=== PATIENT | female | born 1965 | race Caucasian/White ===

== ENCOUNTER 2016-02-25 10:15 | Outpatient (CLI) | payer OTHER | END 2016-02-25 10:16 | disposition home or self-care (01) | DX: Z00.00 Encounter for general adult medical examination without abnormal findings (principal); R31.9 Hematuria, unspecified ==

== ENCOUNTER 2017-03-10 08:00 | Outpatient (CLI) | payer BC, OTHER ==
[2017-03-10 12:29] LABS: BASOPHILS # (AUTO) 0.1 10^3/uL (0.0-0.1); BASOPHILS % (AUTO) 0.7 %; EOSINOPHILS # (AUTO) 0.1 10^3/uL (0.0-0.7); EOSINOPHILS % (AUTO) 1.3 %; HGB - HEMOGLOBIN 13.4 g/dL (12.0-16.0); LYMPHOCYTES # (AUTO) 2.2 10^3/uL (1.5-3.5); LYMPHOCYTES % (AUTO) 32.2 %; MEAN CORPUSCULAR HEMOGLOBIN 29.2 pg (27.0-31.0); MEAN CORPUSCULAR HGB CONC 33.7 g/dL (32.0-36.0); MEAN CORPUSCULAR VOLUME 86.8 fL (81.0-99.0); MEAN PLATELET VOLUME 8.6 fL (7.9-10.8); MONOCYTES # (AUTO) 0.5 10^3/uL (0.0-1.0); MONOCYTES % (AUTO) 6.9 %; NEUTROPHILS # (AUTO) 4.1 10^3/uL (1.5-6.6); NEUTROPHILS % (AUTO) 58.9 %; PLT - PLATELET COUNT 328 10^3/uL (130-450); RED BLOOD COUNT 4.59 10^6/uL (4.20-5.40); RED CELL DISTRIBUTION WIDTH 13.7 % (12.0-15.0)
[2017-03-10 12:43] LABS: ALBUMIN/GLOBULIN RATIO 1.1 (1.0-2.2); ALKALINE PHOSPHATASE 40 IU/L (42-121); ALT ALANINE AMINOTRANSFERASE 26 IU/L (10-60); AST ASPARTATE AMINOTRANSFERASE 20 IU/L (10-42); BILIRUBIN,TOTAL 1.1 mg/dL (0.2-1.0); BUN - BLOOD UREA NITROGEN 13 mg/dL (6-20); CALCIUM 9.2 mg/dL (8.5-10.3); CARBON DIOXIDE - CO2 29 mmol/L (21-32); CHLORIDE 101 mmol/L (101-111); CHOL/HDL RATIO 4.5 (<4.4); CHOLESTEROL 161 mg/dL; CREATININE 0.7 mg/dL (0.4-1.0); GFR - MDRD 89 (>89); GLUCOSE 102 mg/dL (70-100); HDL CHOLESTEROL 36 mg/dL; LDL CHOLESTEROL,CALCULATED 107 mg/dL; SODIUM 139 mmol/L (135-145); TOTAL PROTEIN 7.5 g/dL (6.7-8.2); VLDL CHOLESTEROL 18 mg/dL
== END 2017-03-10 08:01 | disposition home or self-care (01) ==
LOC: LAB.WCP 08:00
PROVIDERS: ATTEND Physician Assistant Medical
DX: Z00.00 Encounter for general adult medical examination without abnormal findings (principal)
CPT/HCPCS: 36415; 80053; 80061; 83721; 84443; 85025

== ENCOUNTER 2017-07-07 13:02 | Outpatient (CLI) | payer BC ==
--- NOTE | 2017-07-08 17:35 | Mammography Report ---
DIGITAL SCREENING MAMMOGRAM: 07/07/2017 CLINICAL INDICATION: A 52-year-old with history of benign right breast biopsy for screening. COMPARISON: 06/2013, 10/2012, 09/2011, 08/2010, 07/2008. TECHNIQUE: Routine CC and MLO projections were obtained of the breasts. FINDINGS: The breasts again demonstrate scattered fibroglandular densities bilaterally. No suspicious masses, clustered microcalcifications, or regions of architectural distortion are identified. A few punctate, typically benign calcifications are present. IMPRESSION: BENIGN FINDINGS. RECOMMENDATION: Routine annual screening unless otherwise clinically indicated. BIRADS category 2 benign findings. STANDARD QUALIFYING STATEMENTS 1. This examination was reviewed with the aid of Computed-Aided Detection (CAD). 2. A negative or benign imaging report should not delay biopsy if clinically suspicious findings are present. Consider surgical consultation if warranted. More than 5% of cancers are not identified by imaging. 3. Dense breasts may obscure an underlying neoplasm. TD: 07/08/2017 12:51
== END 2017-07-07 13:03 | disposition home or self-care (01) ==
LOC: DI 13:02
PROVIDERS: ATTEND Physician Assistant Medical
DX: Z12.31 Encounter for screening mammogram for malignant neoplasm of breast (principal)
CPT/HCPCS: 77067

== ENCOUNTER 2017-07-19 08:00 | Outpatient (CLI) | payer BC | END 2017-07-19 08:01 | disposition home or self-care (01) | LOC: LAB.WCP 08:00 | PROVIDERS: ATTEND Physician Assistant Medical | DX: L65.9 Nonscarring hair loss, unspecified (principal) | CPT/HCPCS: 36415; 84443 ==

== ENCOUNTER 2017-08-19 09:45 | Outpatient (CLI) | payer BC ==
[2017-08-19 13:04] LABS: THYROID STIMULATING HORMONE 1.8 uIU/mL (0.34-5.60)
[2017-08-19 13:06] LABS: FREE T4 (FREE THYROXINE) 1.16 ng/dL (0.58-1.64)
== END 2017-08-19 09:46 | disposition home or self-care (01) ==
LOC: LAB.WCP 09:45
PROVIDERS: ATTEND Physician Assistant Medical
DX: E03.9 Hypothyroidism, unspecified (principal)
CPT/HCPCS: 36415; 84439; 84443

== ENCOUNTER 2018-01-17 08:00 | Outpatient (CLI) | payer BC | END 2018-01-17 23:59 | LOC: LAB.R 08:00 | PROVIDERS: ATTEND Physician Assistant Medical | DX: M54.5 Low back pain (principal) | CPT/HCPCS: 87086 ==

== ENCOUNTER 2018-01-24 08:00 | Outpatient (CLI) | payer BC | END 2018-01-24 23:59 | disposition home or self-care (01) | LOC: LAB.WCP 08:00 | PROVIDERS: ATTEND Physician Assistant Medical | DX: E03.9 Hypothyroidism, unspecified (principal) | CPT/HCPCS: 36415; 84443 ==

== ENCOUNTER 2018-05-11 08:00 | Outpatient (CLI) | payer BC ==
[2018-05-11 14:13] LABS: ALBUMIN 4.2 g/dL (3.2-5.5); ALBUMIN/GLOBULIN RATIO 1.1 (1.0-2.2); ALKALINE PHOSPHATASE 38 IU/L (42-121); ALT ALANINE AMINOTRANSFERASE 29 IU/L (10-60); AST ASPARTATE AMINOTRANSFERASE 24 IU/L (10-42); BILIRUBIN,TOTAL 1.5 mg/dL (0.2-1.0); BUN - BLOOD UREA NITROGEN 14 mg/dL (6-20); CALCIUM 9.6 mg/dL (8.5-10.3); CARBON DIOXIDE - CO2 28 mmol/L (21-32); CHLORIDE 95 mmol/L (101-111); CHOL/HDL RATIO 4.5 (<4.4); CHOLESTEROL 208 mg/dL; CREATININE 0.6 mg/dL (0.4-1.0); GFR - MDRD 105 (>89); GLUCOSE 97 mg/dL (70-100); HDL CHOLESTEROL 46 mg/dL; LDL CHOLESTEROL,CALCULATED 141 mg/dL; LDL/HDL RATIO 3.1 (<4.4); SODIUM 135 mmol/L (135-145); TOTAL PROTEIN 7.9 g/dL (6.7-8.2); VLDL CHOLESTEROL 21 mg/dL
[2018-05-11 14:14] LABS: BASOPHILS # (AUTO) 0.1 10^3/uL (0.0-0.1); BASOPHILS % (AUTO) 1.3 %; EOSINOPHILS # (AUTO) 0.1 10^3/uL (0.0-0.7); EOSINOPHILS % (AUTO) 1.4 %; HGB - HEMOGLOBIN 14.2 g/dL (12.0-16.0); LYMPHOCYTES # (AUTO) 2.8 10^3/uL (1.5-3.5); LYMPHOCYTES % (AUTO) 35.9 %; MEAN CORPUSCULAR HEMOGLOBIN 29.3 pg (27.0-31.0); MEAN CORPUSCULAR HGB CONC 33.9 g/dL (32.0-36.0); MEAN CORPUSCULAR VOLUME 86.5 fL (81.0-99.0); MEAN PLATELET VOLUME 8.4 fL (7.9-10.8); MONOCYTES # (AUTO) 0.6 10^3/uL (0.0-1.0); MONOCYTES % (AUTO) 7.9 %; NEUTROPHILS # (AUTO) 4.2 10^3/uL (1.5-6.6); NEUTROPHILS % (AUTO) 53.5 %; PLT - PLATELET COUNT 386 10^3/uL (130-450); RED BLOOD COUNT 4.86 10^6/uL (4.20-5.40); RED CELL DISTRIBUTION WIDTH 13.2 % (12.0-15.0); WHITE BLOOD COUNT 7.8 x10^3/uL (4.8-10.8)
== END 2018-05-11 08:01 | disposition home or self-care (01) ==
LOC: LAB.WCP 08:00
PROVIDERS: ATTEND Physician Assistant Medical
DX: Z00.00 Encounter for general adult medical examination without abnormal findings (principal); E78.2 Mixed hyperlipidemia; Z79.899 Other long term (current) drug therapy; I10 Essential (primary) hypertension; E03.9 Hypothyroidism, unspecified
CPT/HCPCS: 36415; 80053; 80061; 83721; 84443; 85025

== ENCOUNTER 2018-06-14 10:15 | Emergency (ER) | payer BC ==
[2018-06-14 10:24] VITALS: BP 134/97
--- NOTE | 2018-06-14 11:56 | Ultrasound Report ---
Reason: swelling viens bludging Procedure Date: 06/14/2018 Accession Number: [id number] / [id number] Procedure: US - Duplex Ext Veins Left CPT Code: FULL RESULT: EXAM: LEFT LOWER EXTREMITY VENOUS ULTRASOUND EXAM DATE: 06/14/2018 10:38 AM. CLINICAL HISTORY: Bruising, swelling and bulging veins in the proximal left lower extremity. COMPARISON: None. TECHNIQUE: Real-time sonographic vascular imaging was performed by the go cart mechanic through the lower extremity utilizing both color-flow and Doppler spectral analysis. Multiple resources representative static images were saved for review. FINDINGS: Common Femoral Vein (CFV): Normal. CFV-GSV Junction: Normal. Profunda Femoral Vein (PFV): Normal. Femoral Vein (FV) Prox: Normal. Femoral Vein (FV) Mid: Normal. Femoral Vein (FV) Dist: Normal. Popliteal Vein: Normal. Posterior Tibial Veins: Normal. Peroneal Veins: Normal. Contralateral Side CFV: Normal. Other: In the region of bruising in the proximal left lower extremity there is ill-defined regions of echogenicity within the subcutaneous fat with no internal vascularity. IMPRESSION: 1. No evidence for deep venous thrombosis in the left lower extremity. 2. Fat contusion in the area of bruising in the left lower extremity. RADIA
--- NOTE | 2018-06-14 11:58 | ED Physician Documentation ---
PD HPI LOWER EXT INJURY - Stated complaint Stated Complaint: LFT LEG PX - Chief complaint Chief Complaint: Ext Problem - History obtained from History obtained from: Patient - History of Present Illness PD HPI LOW EXT INJURY LOCATION: Left, Lower leg Type of injury: Other (unknown) Timing - onset: How many days ago (3) Timing - duration: Days (3) Timing - details: Abrupt onset, Still present Improved by: Rest Worsened by: Moving, Palpating Associated symptoms: Swelling, Discolored Contributing factors: No: Anticoagulated Similar symptoms before: Has not had sx before Recently seen: Not recently seen - Additional information Additional information: 53-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 She did not recall any kind of an injury to the area and she became concerned about this.She is specifically concerned about a blood clot. Review of Systems Constitutional: denies: Fever Eyes: denies: Decreased vision Ears: denies: Ear pain Nose: denies: Congestion Throat: denies: Sore throat Cardiac: denies: Chest pain / pressure Respiratory: denies: Cough GI: denies: Vomiting Skin: denies: Rash, Laceration (s), Bite / sting Musculoskeletal: reports: Extremity pain, Extremity swelling. denies: Neck pain, Back pain Neurologic: denies: Generalized weakness, Focal weakness, Numbness PD PAST MEDICAL HISTORY - Past Medical History Cardiovascular: Hypertension Respiratory: None Endocrine/Autoimmune: None GI: None : None HEENT: None Psych: None Musculoskeletal: None Derm: None - Past Surgical History Past Surgical History: Yes General: Cholecystectomy - Present Medications Home Medications: Ambulatory Orders Medication Instructions Recorded Confirmed Lisinopril [Zestril] 20 mg PO DAILY 11/19/12 06/14/18 hydroCHLOROthiazide [Hydrodiuril] 25 mg PO DAILY 11/19/12 06/14/18 Levothyroxine [Synthroid] 75 mcg PO QDAC 06/14/18 06/14/18 - Allergies Allergies/Adverse Reactions: Allergies Allergy/AdvReac Type Severity Reaction Status Date / Time sulfamethoxazole AdvReac Rash Verified 06/14/18 10:24 [From Bactrim] trimethoprim [From Bactrim] AdvReac Rash Verified 06/14/18 10:24 - Social History Does the pt smoke?: No Smoking Status: Never smoker Does the pt drink ETOH?: Yes Does the pt have substance abuse?: No - POLST Patient has POLST: No PD ED PE NORMAL - Vitals Vital signs reviewed: Yes (hypertensive ) - General General: Alert and oriented X 3, No acute distress, Well developed/nourished - HEENT HEENT: Atraumatic, PERRL, EOMI - Neck Neck: Supple, no meningeal sign - Respiratory Respiratory: No respiratory distress - Derm Derm: Normal color, Warm and dry, No rash - Extremities Extremities: No deformity, Other (There is an area on the left calf medially that is ecchymotic without significant tenderness and there are varicos veins above this that appear mildly engorged. There is an are below this that is soft tissue swelling without ecchymosis. 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 No evidence for deep venous thrombosis in the left lower extremity 2. fat contusion in the area of bruising in the left lower extremity.), EMP read indepedently, See rad report PD MEDICAL DECISION MAKING - ED course Complexity details: reviewed results, re-evaluated patient, considered martineze heron, d/w patient ED course: 53-year-old female with what appears to be a bruise to the medial calf on the left side does not have DVT on ultrasound examination of the lower extremity. Departure - Departure Disposition: 01 Home, Self Care Clinical Impression: Traumatic ecchymosis of left lower leg Qualifiers: Encounter type: initial encounter Qualified Code(s): S80.12XA - Contusion of left lower leg, initial encounter Instructions: ED Contusion Soft Tissue Follow-Up: Esther Denney PA-C [Primary Care Provider] -
== END 2018-06-14 12:17 | disposition home or self-care (01) ==
LOC: ED 10:15
DX: S80.12XA Contusion of left lower leg, initial encounter (principal); I10 Essential (primary) hypertension
CPT/HCPCS: 99282; 99283

== ENCOUNTER 2018-07-03 09:30 | Outpatient (CLI) | payer BC | END 2018-07-03 23:59 | disposition home or self-care (01) | LOC: LAB.WCP 09:30 | PROVIDERS: ATTEND Physician Assistant Medical | DX: R30.0 Dysuria (principal); L01.00 Impetigo, unspecified | CPT/HCPCS: 87070; 87086; 87205 ==

== ENCOUNTER 2019-01-27 16:29 | Outpatient (CLI) | payer BC ==
--- NOTE | 2019-01-27 17:57 | MRI Report ---
Reason: LOW BACK PAIN Procedure Date: 01/27/2019 Accession Number: [id number] / [id number] Procedure: MRI - Lumbar Spine W/O CPT Code: Final Report FULL RESULT: EXAM: MRI LUMBAR SPINE WITHOUT CONTRAST EXAM DATE: 01/27/2019 05:14 PM. CLINICAL HISTORY: 53-year-old female, anterior left leg pain. LOW BACK PAIN. COMPARISON: Radiograph lumbar spine 09/21/2016 TECHNIQUE: Multiplanar, multisequence T1-weighted and fluid-sensitive sequences of the lumbar spine from T12 to S1 without contrast. Other: None. FINDINGS: Spinal Canal: The conus terminates at L1-L2. The conus medullaris appears unremarkable. There is suggestion of clumping of cauda equina nerve roots (for example series 601 image 21). Alignment: No scoliosis or spondylolisthesis. Bone Marrow: Five [id number] lumbar vertebral bodies are assumed. No gross fractures. T1 and T2 hyperintense lesions within L2 vertebral body are favored to represent benign hemangioma. No bone marrow replacement. Disk Levels/Facets: T12-L1: Mild diffuse disk bulge. No significant central canal or foraminal narrowing. L1-L2: Unremarkable. L2-L3: Mild diffuse disk bulge with superimposed left foraminal protrusion. Mild bilateral facet arthropathy. Mild central canal narrowing. Moderate left foraminal narrowing. No right foraminal narrowing. L3-L4: Mild bilateral facet arthropathy. Mild diffuse disk bulge. No significant central canal narrowing. Mild bilateral foraminal narrowing. L4-L5: Moderate diffuse disk bulge. Moderate bilateral facet arthropathy. Mild central canal narrowing. Moderate to severe right and moderate left foraminal narrowing. L5-S1: Mild diffuse disk bulge. Mild bilateral facet arthropathy. No significant central canal narrowing. Moderate right and mild left foraminal narrowing. Musculature: Normal. No edema or fatty atrophy. Other: The partially visualized retroperitoneum is unremarkable. IMPRESSION: 1. No evidence of acute fracture or traumatic subluxation. No bone marrow edema. No cord signal abnormality. 2. There is suggestion of clumping of cauda equina nerve roots (for example series 601 image 21). This suggests possibility of adhesive arachnoiditis, which may represent etiology for the patient's symptoms. Consider follow-up contrast enhanced lumbar MRI study to complete the assessment. 3. Mild to moderate multilevel degenerative spondylosis, as detailed above and summarized below. 4. L2-L3: Mild central canal narrowing. Moderate left foraminal narrowing. No right foraminal narrowing. Recommend correlation for left L2 radicular symptoms. 5. L3-L4: No significant central canal narrowing. Mild bilateral foraminal narrowing. 6. L4-L5: Mild central canal narrowing. Moderate to severe right and moderate left foraminal narrowing. Recommend correlation for right greater than left L4 radicular symptoms. 7. L5-S1: No significant central canal narrowing. Moderate right and mild left foraminal narrowing. Recommend correlation for right L5 radicular symptoms. Comment: The following findings are so common in adults without low back pain that while we report their presence, they must be interpreted with caution and in the context of the clinical situation. (Reference Francoisk et al, Spine 2001) Prevalence of findings in patients without low back pain: Disk degeneration (any evidence): 92% Disk desiccation/T2 signal loss: 83% Disk height loss: 56% Disk bulge: 64% Disk protrusion: 32% Annular tear/high intensity zone: 38% RADIA
== END 2019-01-27 16:30 | disposition home or self-care (01) ==
LOC: DI 16:29
PROVIDERS: ATTEND Physician Assistant Medical
DX: M47.816 Spondylosis without myelopathy or radiculopathy, lumbar region (principal); M48.061 Spinal stenosis, lumbar region without neurogenic claudication
CPT/HCPCS: 72148

== ENCOUNTER 2019-02-24 11:31 | Outpatient (CLI) | payer OTHER ==
[2019-02-24 12:03] LABS: CALCIUM 9.7 mg/dL (8.5-10.3); CREATININE 0.7 mg/dL (0.4-1.0)
== END 2019-02-24 11:32 | disposition home or self-care (01) ==
LOC: DI 11:31
PROVIDERS: ATTEND Physician Assistant Medical
DX: G83.4 Cauda equina syndrome (principal)
CPT/HCPCS: 36415; 80048

== ENCOUNTER 2019-03-06 17:18 | Outpatient (CLI) | payer OTHER | END 2019-03-06 17:19 | disposition home or self-care (01) | LOC: DI 17:18 | PROVIDERS: ATTEND Physician Assistant Medical | DX: Z53.9 Procedure and treatment not carried out, unspecified reason (principal) ==

== ENCOUNTER 2019-03-10 08:18 | Outpatient (CLI) | payer OTHER ==
[2019-03-10] MEDS ORDERED: GADOBUTROL 10 MMOL/10 ML VIAL ONE (08:24)
[2019-03-10] MEDS ORDERED: GADOBUTROL 10 MMOL/10 ML VIAL IVP ONE (09:02)
--- NOTE | 2019-03-10 15:49 | MRI Report ---
Reason: CAUDA EQUINA SYNDROME Procedure Date: 03/10/2019 Accession Number: [id number] / [id number] Procedure: MRI - Lumbar Spine W/ CPT Code: Final Report FULL RESULT: EXAM: MRI LUMBAR SPINE WITH CONTRAST EXAM DATE: 03/10/2019 08:52 AM. CLINICAL HISTORY: 54-year-old female. CAUDA EQUINA SYNDROME. COMPARISONS: MR lumbar spine 01/27/2019 TECHNIQUE: Limited, postcontrast only axial and sagittal images of the lumbar spine from T12 to S1 , following administration of intravenous contrast. Other: None. IV contrast: 10 ML Gadavist. FINDINGS: Neurologic Structures: The conus terminates at L1. No abnormal enhancement of the conus or the cauda equina. Alignment: No scoliosis or spondylolisthesis. Bone Marrow: Five ieq-krm-mczwtla lumbar vertebral bodies are assumed. No gross fractures or bone lesions. No abnormal enhancement. Stable mild multilevel degenerative spondylosis, better assessed on the prior complete MRI lumbar spine. Spinal Canal: No enhancing masses within the spinal canal. No epidural abscess. Musculature: No abnormal enhancement Other: The visualized retroperitoneum is unremarkable. IMPRESSION: 1. Limited postcontrast only MRI of the lumbar spine to accompany the MRI lumbar spine performed on 01/27/2019. No abnormal enhancement of the cord, the cauda equina, central canal, or the visualized vertebral column. 2. Stable mild multilevel degenerative spondylosis, better assessed on the prior complete MRI lumbar spine. Comment: The following findings are so common in adults without low back pain that while we report their presence, they must be interpreted with caution and in the context of the clinical situation. (Reference Zhouvik et al, Spine 2001) Prevalence of findings in patients without low back pain: Disk degeneration (any evidence): 92% Disk desiccation/T2 signal loss: 83% Disk height loss: 56% Disk bulge: 64% Disk protrusion: 32% Annular tear/high intensity zone: 38% RADIA
== END 2019-03-10 08:19 | disposition home or self-care (01) ==
LOC: DI 08:18
PROVIDERS: ATTEND Physician Assistant Medical
DX: G83.4 Cauda equina syndrome (principal); M47.816 Spondylosis without myelopathy or radiculopathy, lumbar region
CPT/HCPCS: 72149; A9585

== ENCOUNTER 2019-09-05 09:23 | Outpatient (CLI) | payer OTHER ==
[2019-09-05 11:46] LABS: BASOPHILS # (AUTO) 0.1 10^3/uL (0.0-0.1); BASOPHILS % (AUTO) 1.1 %; EOSINOPHILS # (AUTO) 0.1 10^3/uL (0.0-0.7); EOSINOPHILS % (AUTO) 1.4 %; HGB - HEMOGLOBIN 14.3 g/dL (12.0-16.0); LYMPHOCYTES # (AUTO) 2.5 10^3/uL (1.5-3.5); LYMPHOCYTES % (AUTO) 35.6 %; MEAN CORPUSCULAR HEMOGLOBIN 28.7 pg (27.0-31.0); MEAN CORPUSCULAR HGB CONC 32.1 g/dL (32.0-36.0); MEAN CORPUSCULAR VOLUME 89.2 fL (81.0-99.0); MONOCYTES # (AUTO) 0.5 10^3/uL (0.0-1.0); MONOCYTES % (AUTO) 6.7 %; NEUTROPHILS # (AUTO) 3.9 10^3/uL (1.5-6.6); NEUTROPHILS % (AUTO) 55.1 %; PLT - PLATELET COUNT 361 10^3/uL (130-450); RED BLOOD COUNT 4.99 10^6/uL (4.20-5.40); RED CELL DISTRIBUTION WIDTH 13.1 % (12.0-15.0); WHITE BLOOD COUNT 7.1 x10^3/uL (4.8-10.8)
[2019-09-05 12:19] LABS: ALBUMIN 4.5 g/dL (3.2-5.5); ALBUMIN/GLOBULIN RATIO 1.2 (1.0-2.2); ALKALINE PHOSPHATASE 37 IU/L (42-121); ALT ALANINE AMINOTRANSFERASE 29 IU/L (10-60); AST ASPARTATE AMINOTRANSFERASE 21 IU/L (10-42); BILIRUBIN,TOTAL 1.1 mg/dL (0.2-1.0); BUN - BLOOD UREA NITROGEN 15 mg/dL (6-20); CALCIUM 9.8 mg/dL (8.5-10.3); CARBON DIOXIDE - CO2 28 mmol/L (21-32); CHLORIDE 98 mmol/L (101-111); CHOLESTEROL 232 mg/dL; CREATININE 0.6 mg/dL (0.4-1.0); GLUCOSE 104 mg/dL (70-100); HDL CHOLESTEROL 46 mg/dL; LDL CHOLESTEROL,CALCULATED 163 mg/dL; LDL/HDL RATIO 3.5 (<4.4); SODIUM 136 mmol/L (135-145); TOTAL PROTEIN 8.2 g/dL (6.7-8.2); VLDL CHOLESTEROL 23 mg/dL
== END 2019-09-05 23:59 | disposition home or self-care (01) ==
LOC: LAB.WCP 09:23
PROVIDERS: ATTEND Physician Assistant Medical
DX: E03.9 Hypothyroidism, unspecified (principal); E78.2 Mixed hyperlipidemia; I10 Essential (primary) hypertension
CPT/HCPCS: 36415; 80053; 80061; 83721; 84443; 85025

== ENCOUNTER 2019-10-08 11:08 | Outpatient (CLI) | payer OTHER ==
--- NOTE | 2019-10-09 09:26 | Mammography Report ---
BILATERAL DIGITAL SCREENING MAMMOGRAM 3D/2D: 10/08/2019 CLINICAL: Routine screening. Comparison is made to exams dated: 07/07/2017 mammogram and 11/13/2012 mammogram - [facility]. There are scattered fibroglandular elements in both breasts. There is a 0.9 cm oval equal density focal asymmetry in the left breast central to the nipple in the retroareolar region. This is more prominent and increased in size. No other significant masses, calcifications, or other findings are seen in either breast. IMPRESSION: INCOMPLETE: NEEDS ADDITIONAL IMAGING EVALUATION The 0.9 cm oval equal density focal asymmetry in the left breast is indeterminate. Additional views with possible ultrasound are recommended. This exam was interpreted at Station ID: [id number]. NOTE: For mammograms, a report in lay terms will be sent to the patient. Approximately 15% of breast malignancies will not be visualized mammographically. In the management of a palpable breast mass, a negative mammogram must not discourage biopsy of a clinically suspicious lesion. Electronically Signed By: Zion Hager M.D. aty/:10/09/2019 08:01:08 ACR BI-RADS Category 0: Incomplete 3340F PARENCHYMAL PATTERN: (A) - The breast(s) demonstrate(s) scattered fibroglandular densities. BI-RADS CATEGORY: (0) - 0 Mammo and [place] [id number] Immediate follow-up LATERALITY: (L)
== END 2019-10-08 11:09 | disposition home or self-care (01) ==
LOC: DI.N 11:08
DX: Z12.31 Encounter for screening mammogram for malignant neoplasm of breast (principal); R92.8 Other abnormal and inconclusive findings on diagnostic imaging of breast
CPT/HCPCS: 77063; 77067

== ENCOUNTER 2019-10-30 10:30 | Outpatient (CLI) | payer OTHER ==
--- NOTE | 2019-10-31 10:20 | Ultrasound Report ---
LIMITED ULTRASOUND OF LEFT BREAST AND AXILLA: 10/30/2019 CLINICAL: Patient returns for additional imaging over a suspected mass in the left breast. Comparison is made to exams dated: 10/30/2019 mammogram, 10/08/2019 mammogram, 07/07/2017 mammogram, an d 11/13/2012 mammogram - [facility]. Color flow and real-time ultrasound of the left breast axilla were performed. Hinds scale images of t he real-time examination were reviewed. There is a 0.9 cm x 0.9 cm x 0.4 cm oval mass with a circumscribed margin in the left breast at 4 o'c lock in the retroareolar region 1 cm from the nipple. This oval mass is hypoechoic with a well-defin ed boundary and posterior acoustic shadowing. This correlates with mammography findings. Color flow imaging demonstrates that there is no vascularity present. No significant abnormalities were seen sonographically in the left axilla. IMPRESSION: SUSPICIOUS OF MALIGNANCY The 0.9 cm oval mass in the left breast is at a low suspicion for malignancy. An ultrasound guided biopsy is recommended. Exam findings were reviewed with the patient by Dr. Carol Leroy. This exam was interpreted at Station ID: [id number]. Electronically Signed By: Blake Morrison M.D. slc/:10/30/2019 12:15:42 Ultrasound BI-RADS: 4a Low suspicion for malignancy BI-RADS CATEGORY: (4a) - Low Susp None [id number] Immediate follow-up LATERALITY: ()
--- NOTE | 2019-10-31 10:20 | Mammography Report ---
UNILATERAL LEFT DIGITAL DIAGNOSTIC MAMMOGRAM 3D/2D: 10/30/2019 CLINICAL: Patient returns today to evaluate a focal asymmetry in the left breast. Comparison is made to exams dated: 10/08/2019 mammogram, 07/07/2017 mammogram, 07/11/2013 mammogram, an d 11/13/2012 mammogram - [facility]. There are scattered fibroglandular elements in left breast. There is a 0.9 cm oval mass with an obscured and circumscribed margin in the left breast slightly inf erolateral to the nipple in the retroareolar region. No other significant masses or calcifications are seen in the breast. IMPRESSION: INCOMPLETE: NEEDS ADDITIONAL IMAGING EVALUATION The 0.9 cm oval mass in the left breast is indeterminate. A targeted ultrasound is recommended and will immediately follow. This exam was interpreted at Station ID: [id number]. NOTE: For mammograms, a report in lay terms will be sent to the patient. Approximately 15% of breast malignancies will not be visualized mammographically. In the management of a palpable breast mass, a negative mammogram must not discourage biopsy of a clinically suspicious lesion. Electronically Signed By: Blake Morrison M.D. slc/:10/30/2019 11:45:37 ACR BI-RADS Category 0: Incomplete 3340F PARENCHYMAL PATTERN: (A) - The breast(s) demonstrate(s) scattered fibroglandular densities. BI-RADS CATEGORY: (0) - 0 Ultrasound [id number] Immediate follow-up LATERALITY: (B)
== END 2019-10-30 10:31 | disposition home or self-care (01) ==
LOC: DI 10:30
PROVIDERS: ATTEND Physician Assistant Medical
DX: N63.23 Unspecified lump in the left breast, lower outer quadrant (principal)
CPT/HCPCS: 76642

== ENCOUNTER 2019-11-06 11:46 | Outpatient (CLI) | payer OTHER ==
[~2019-11-06 11:46] MED LIST: BUFFERED LIDOCAINE 10 ML SYRINGE ONE
[2019-11-06] MEDS ORDERED: BUFFERED LIDOCAINE 10 ML SYRINGE IU ONE (15:24)
--- NOTE | 2019-11-07 14:13 | Mammography Report ---
UNILATERAL LEFT DIGITAL DIAGNOSTIC MAMMOGRAM 3D/2D: 11/06/2019 CLINICAL: Post left breast ultrasound biopsy clip placement imaging. Comparison is made to exams dated: 10/30/2019 ultrasound, 10/30/2019 mammogram, 10/08/2019 mammogram, a nd 07/07/2017 mammogram - [facility]. There are scattered fibroglandular elements i n left breast. There is a marker clip in the appropriate position in the left breast at 4 o'clock in the retroareola r region. This marker clip placement is at the biopsy site. IMPRESSION: POST PROCEDURE MAMMOGRAM FOR MARKER PLACEMENT There was a successful marker clip placement in the left breast in the retroareolar region at the bio [facility] site. This exam was interpreted at Station ID: [id number]. Electronically Signed By: Blake Morrison M.D. slc/:11/06/2019 17:17:07 ACR BI-RADS Category Post-procedure mammogram for marker placement PARENCHYMAL PATTERN: (A) - The breast(s) demonstrate(s) scattered fibroglandular densities. BI-RADS CATEGORY: () - Unspecified - other recall n/a LATERALITY: (B)
== END 2019-11-06 11:47 | disposition home or self-care (01) ==
LOC: DI 11:46
PROVIDERS: ATTEND Physician Assistant Medical
DX: D24.2 Benign neoplasm of left breast (principal)
CPT/HCPCS: 19083

== ENCOUNTER 2020-03-18 08:00 | Outpatient (CLI) | payer OTHER ==
[2020-03-18 14:22] LABS: ALBUMIN/GLOBULIN RATIO 1.2 (1.0-2.2); ALKALINE PHOSPHATASE 44 IU/L (42-121); ALT ALANINE AMINOTRANSFERASE 23 IU/L (10-60); AST ASPARTATE AMINOTRANSFERASE 18 IU/L (10-42); BILIRUBIN,TOTAL 0.8 mg/dL (0.2-1.0); BUN - BLOOD UREA NITROGEN 10 mg/dL (6-20); CALCIUM 9.7 mg/dL (8.5-10.3); CARBON DIOXIDE - CO2 29 mmol/L (21-32); CHLORIDE 100 mmol/L (101-111); CHOL/HDL RATIO 4.4 (<4.4); CHOLESTEROL 192 mg/dL; CREATININE 0.5 mg/dL (0.4-1.0); GLUCOSE 94 mg/dL (70-100); HDL CHOLESTEROL 44 mg/dL; LDL CHOLESTEROL,CALCULATED 121 mg/dL; LDL/HDL RATIO 2.8 (<4.4); TOTAL PROTEIN 7.4 g/dL (6.7-8.2); VLDL CHOLESTEROL 27 mg/dL
== END 2020-03-18 23:59 | disposition home or self-care (01) ==
LOC: LAB.WCP 08:00
PROVIDERS: ATTEND Physician Assistant Medical
DX: E78.2 Mixed hyperlipidemia (principal)
CPT/HCPCS: 36415; 80053; 80061; 83721

== ENCOUNTER 2020-05-23 16:04 | Outpatient (CLI) | payer OTHER | END 2020-05-23 16:05 | disposition critical access hospital (66) | LOC: EMS 16:04 | DX: R42 Dizziness and giddiness (principal); R11.0 Nausea | CPT/HCPCS: A0425; A0427 ==

== ENCOUNTER 2020-05-23 16:25 | Emergency (ER) | payer OTHER ==
--- NOTE | 2020-05-23 16:50 | ED Physician Documentation ---
History of Present Illness - Stated complaint Stated Complaint: CHEST DISCOMFORT - Chief complaint Chief Complaint: Cardiac - History obtained from History obtained from: Patient, EMS - History of Present Illness Timing: Today Pain level max: 0 Pain level now: 0 - Additonal information Additional information: 54-year-old female presents to the emergency department stating that after eating lunch today she felt a warmth in her chest. No pain. Mild nausea. No vomiting. Nothing makes it better or worse. Has been constant since that time. No cardiac history. No difficulty breathing. She went to her doctor's office and they called an ambulance to bring her to the emergency department. She denies any feelings of pressure or pain. Patient has no cardiac history. No history of ACS. Review of Systems Ten Systems: 10 systems reviewed and negative Constitutional: denies: Fever, Chills Nose: denies: Rhinorrhea / runny nose, Congestion Respiratory: denies: Cough GI: denies: Abdominal Pain, Vomiting, Diarrhea : denies: Dysuria Skin: denies: Rash Musculoskeletal: denies: Neck pain, Back pain Neurologic: denies: Headache PD PAST MEDICAL HISTORY - Past Medical History Past Medical History: Yes Cardiovascular: Hypertension Respiratory: None Endocrine/Autoimmune: None GI: None : None HEENT: None Psych: None Musculoskeletal: None Derm: None - Past Surgical History Past Surgical History: Yes General: Cholecystectomy - Present Medications Home Medications: Ambulatory Orders Medication Instructions Recorded Confirmed hydroCHLOROthiazide [Hydrodiuril] 25 mg PO DAILY 11/19/12 05/23/20 lisinopriL [Zestril] 20 mg PO DAILY 11/19/12 06/14/18 Levothyroxine [Synthroid] 75 mcg PO QDAC 06/14/18 05/23/20 - Allergies Allergies/Adverse Reactions: Allergies Allergy/AdvReac Type Severity Reaction Status Date / Time sulfamethoxazole AdvReac Rash Verified 06/14/18 10:24 [From Bactrim] trimethoprim [From Bactrim] AdvReac Rash Verified 06/14/18 10:24 - Social History Does the pt smoke?: No Smoking Status: Never smoker Does the pt drink ETOH?: Yes Does the pt have substance abuse?: No - Immunizations Immunizations are current?: Yes - POLST Patient has POLST: No PD ED PE NORMAL - Vitals Vital signs reviewed: Yes - General General: Alert and oriented X 3, No acute distress, Well developed/nourished - HEENT HEENT: PERRL, Moist mucous membranes - Neck Neck: Supple, no meningeal sign - Cardiac Cardiac: RRR, Strong equal pulses - Respiratory Respiratory: No respiratory distress, Clear bilaterally - Abdomen Abdomen: Soft, Non tender, Non distended - Derm Derm: Warm and dry - Extremities Extremities: No edema, No calf tenderness / cord - Neuro Neuro: Alert and oriented X 3 - Psych Psych: Normal mood, Normal affect Results - Vitals Vitals: Vital Signs - 24 hr 05/23/20 05/23/20 05/23/20 16:32 16:45 17:30 Temperature 36.9 C Heart Rate 94 89 82 Respiratory 18 17 19 Rate Blood Pressure 159/91 H 138/90 H 126/85 H O2 Saturation 94 99 100 05/23/20 18:36 Temperature Heart Rate 75 Respiratory 16 Rate Blood Pressure 125/90 H O2 Saturation 100 Oxygen O2 Source Room air - EKG (time done) 1635 Rate: Rate (enter#) (86) Rhythm: NSR [place]: Normal Intervals: Normal NM QRS: Normal, LVH Ischemia: Normal ST segments - Labs Labs: Laboratory Tests 05/23/20 05/23/20 05/23/20 16:55 16:55 16:55 WBC 9.0 RBC 4.91 Hgb 14.4 Hct 43.0 MCV 87.6 MCH 29.3 MCHC 33.5 RDW 13.0 Plt Count 384 MPV 9.3 Neut # (Auto) 5.8 Lymph # (Auto) 2.5 [place] # (Auto) 0.6 Eos # (Auto) 0.1 Baso # (Auto) 0.1 Absolute Nucleated RBC 0.00 Nucleated RBC % 0.0 Sodium 137 Potassium 3.3 L Chloride 96 L Carbon Dioxide 31 Anion Gap 10.0 BUN 16 Creatinine 0.7 Estimated GFR (MDRD) 88 L Glucose 116 H Calcium 9.7 Total Bilirubin 0.8 AST 21 ALT 25 Alkaline Phosphatase 42 Troponin I High Sens 3.2 Total Protein 8.1 Albumin 4.0 Globulin 4.1 Albumin/Globulin Ratio 1.0 Lipase 32 - Rads (name of study) cxr Radiology: Prelim report reviewed, EMP read contemporaneously, See rad report (no acute abnormality.) PD MEDICAL DECISION MAKING - ED course Complexity details: reviewed results, re-evaluated patient, considered differential, d/w patient ED course: Patient with a warm feeling in her chest today. No acute findings on laboratory, EKG or radiographic studies. Asymptomatic in the ER. No findings on telemetry. Unclear etiology. Nausea resolved with Zofran. Patient counseled regarding signs and symptoms for which I believe and urgent re-evaluation would be necessary. Patient with good understanding of and agreement to plan and is comfortable going home at this time This document was made in part using voice recognition software. While efforts are made to proofread this document, sound alike and grammatical errors may occur. Departure - Departure Disposition: Home, Self Care Clinical Impression: Atypical chest pain Condition: Good Instructions: ED Chest Pain Atypical Unkn Cause Follow-Up: Esther Denney PA-C [Primary Care Provider] - Comments: Follow-up with your doctor next week for further care. Start on a daily aspirin if you are not already taking this. Avoid any strenuous activity. You should have a cardiac stress test scheduled next week with your doctor. Your testing is normal today. Discharge Date/Time: 05/23/20 18:37
[2020-05-23 17:00] LABS: BASOPHILS # (AUTO) 0.1 10^3/uL (0.0-0.1); BASOPHILS % (AUTO) 0.6 %; EOSINOPHILS # (AUTO) 0.1 10^3/uL (0.0-0.7); EOSINOPHILS % (AUTO) 1.1 %; HGB - HEMOGLOBIN 14.4 g/dL (12.0-16.0); LYMPHOCYTES # (AUTO) 2.5 10^3/uL (1.5-3.5); LYMPHOCYTES % (AUTO) 27.4 %; MEAN CORPUSCULAR HEMOGLOBIN 29.3 pg (27.0-31.0); MEAN CORPUSCULAR HGB CONC 33.5 g/dL (32.0-36.0); MEAN CORPUSCULAR VOLUME 87.6 fL (81.0-99.0); MEAN PLATELET VOLUME 9.3 fL (7.9-10.8); MONOCYTES # (AUTO) 0.6 10^3/uL (0.0-1.0); MONOCYTES % (AUTO) 6.6 %; NEUTROPHILS # (AUTO) 5.8 10^3/uL (1.5-6.6); PLT - PLATELET COUNT 384 10^3/uL (130-450); RED BLOOD COUNT 4.91 10^6/uL (4.20-5.40)
--- NOTE | 2020-05-23 17:11 | XRAY Report ---
PROCEDURE: Chest 1 View X-Ray INDICATIONS: Chest Pain TECHNIQUE: One view of the chest was acquired. COMPARISON: None. FINDINGS: Surgical changes and devices: None. Lungs and pleura: No pleural effusions or pneumothorax. Lungs are clear. Mediastinum: Mediastinal contours appear normal. Heart size is normal. Bones and chest wall: No suspicious bony lesions. Overlying soft tissues appear unremarkable. IMPRESSION: No acute cardiopulmonary abnormality. Reviewed by: Madhu Allen MD on 05/23/2020 5:09 PM PDT Approved by: Madhu Allen MD on 05/23/2020 5:09 PM PDT Station ID: [id number]
[2020-05-23 17:17] LABS: BILIRUBIN,TOTAL 0.8 mg/dL (0.2-1.0); CALCIUM 9.7 mg/dL (8.5-10.3); CREATININE 0.7 mg/dL (0.4-1.0); POTASSIUM 3.3 mmol/L (3.5-5.0); TOTAL PROTEIN 8.1 g/dL (6.7-8.2)
[2020-05-23] MEDS ORDERED: ONDANSETRON 4 MG/2 ML VIAL IVP STA (17:29)
[2020-05-23 18:37] VITALS: BP 125/90
== END 2020-05-23 18:37 | disposition home or self-care (01) ==
LOC: EDUNIT# → SUPCPDRO 16:25 → ED 16:25
DX: R07.89 Other chest pain (principal); R11.0 Nausea; I10 Essential (primary) hypertension
CPT/HCPCS: 36415; 80053; 83690; 84484; 85025; 93005; 99284

== ENCOUNTER 2020-05-27 01:27 | Outpatient (CLI) | payer OTHER | END 2020-05-27 01:28 | disposition EMS.NT | LOC: EMS 01:27 | DX: R00.0 Tachycardia, unspecified (principal); R42 Dizziness and giddiness; F41.9 Anxiety disorder, unspecified ==

== ENCOUNTER 2020-05-30 16:37 | Outpatient (CLI) | payer OTHER ==
--- NOTE | 2020-05-30 23:14 | Ultrasound Report ---
PROCEDURE: Carotid Doppler Complete INDICATIONS: DIZZINESS TECHNIQUE: Color and pulse Doppler interrogation was performed of both carotid systems, with image documentation and velocity measurements. COMPARISON: None. FINDINGS: Right side: Brachial blood pressure: 117/68 mm Hg. Common carotid artery peak systolic velocity: 90 cm/sec. Internal carotid artery peak systolic velocity: 78 cm/sec. Internal carotid artery end diastolic velocity: 32 cm/sec. External carotid artery peak systolic velocity: 82 cm/sec. ICA/CCA peak systolic ratio: 0.9. Hinds scale imaging description: Mild calcified plaque. Percent internal carotid artery stenosis: Less than 50% stenosis. Vertebral artery: Flow direction is antegrade. Left side: Brachial blood pressure: 123/66 mm Hg. Common carotid artery peak systolic velocity: 63 cm/sec. Internal carotid artery peak systolic velocity: 66 cm/sec. Internal carotid artery end diastolic velocity: 27 cm/sec. External carotid artery peak systolic velocity: 70 cm/sec. ICA/CCA peak systolic ratio: 1.0. Hinds scale imaging description: Mild calcified plaque. Percent internal carotid artery stenosis: Less than 50% stenosis. Vertebral artery: Flow direction is antegrade. IMPRESSION: 1. Right ICA: Less than 50% stenosis. 2. Left ICA: Less than 50% stenosis. 3. Antegrade flow in the bilateral vertebral arteries. The estimate of stenosis included in the report of the imaging study was calculated using the NASCET method Reviewed by: Blake Morrison MD on 05/30/2020 11:13 PM PDT Approved by: Blake Morrison MD on 05/30/2020 11:13 PM PDT Station ID: [id number]
== END 2020-05-30 16:38 | disposition home or self-care (01) ==
LOC: DI 16:37
PROVIDERS: ATTEND Physician Assistant Medical
DX: I65.23 Occlusion and stenosis of bilateral carotid arteries (principal)
CPT/HCPCS: 93880

== ENCOUNTER 2020-08-28 19:44 | Emergency (ER) | payer OTHER ==
[2020-08-28 20:11] LABS: BASOPHILS # (AUTO) 0.1 10^3/uL (0.0-0.1); BASOPHILS % (AUTO) 0.7 %; EOSINOPHILS # (AUTO) 0.1 10^3/uL (0.0-0.7); HCT - HEMATOCRIT 42.4 % (37.0-47.0); HGB - HEMOGLOBIN 14.1 g/dL (12.0-16.0); LYMPHOCYTES # (AUTO) 2.8 10^3/uL (1.5-3.5); LYMPHOCYTES % (AUTO) 28.7 %; MEAN CORPUSCULAR HEMOGLOBIN 29.4 pg (27.0-31.0); MEAN CORPUSCULAR HGB CONC 33.3 g/dL (32.0-36.0); MEAN CORPUSCULAR VOLUME 88.3 fL (81.0-99.0); MEAN PLATELET VOLUME 9.1 fL (7.9-10.8); MONOCYTES # (AUTO) 0.7 10^3/uL (0.0-1.0); MONOCYTES % (AUTO) 6.7 %; NEUTROPHILS # (AUTO) 6.1 10^3/uL (1.5-6.6); NEUTROPHILS % (AUTO) 62.7 %; PLT - PLATELET COUNT 336 10^3/uL (130-450); RED CELL DISTRIBUTION WIDTH 12.8 % (12.0-15.0); WHITE BLOOD COUNT 9.8 x10^3/uL (4.8-10.8)
[2020-08-28] MEDS ORDERED: ONDANSETRON 4 MG/2 ML VIAL IVP STA (20:20)
[2020-08-28] MEDS ORDERED: SODIUM CHLORIDE 0.9% 1,000 ML IV STA (20:20)
--- NOTE | 2020-08-28 20:24 | ED Physician Documentation ---
History of Present Illness - Stated complaint Stated Complaint: RACING HEART/RED FACE/NAUSEA - Chief complaint Chief Complaint: Cardiac - Additonal information Additional information: 55-year-old female presents to the emergency department for evaluations of feeling flushed and nauseated. She had sat down to eat dinner and her family commented that her face was red. She looked at her Fitbit watch and noted that her heart rate was 110. She also felt nauseated. She denies that she had chest pain or was feeling short of air. She also had a very similar event yesterday evening when sitting down to dinner. She has been somewhat nauseated for most of the day. Non-smoker. She does have a history of well-controlled hypertension. Review of Systems Constitutional: reports: Fatigue. denies: Fever, Chills Eyes: reports: Reviewed and negative Ears: reports: Reviewed and negative Nose: reports: Reviewed and negative Throat: reports: Reviewed and negative Cardiac: reports: Palpitations. denies: Chest pain / pressure Respiratory: denies: Dyspnea, Cough GI: reports: Nausea. denies: Abdominal Pain, Abdominal Swelling, Vomiting, Constipation, Diarrhea : reports: Reviewed and negative Skin: reports: Reviewed and negative Musculoskeletal: reports: Reviewed and negative Neurologic: reports: Reviewed and negative PD PAST MEDICAL HISTORY - Past Medical History Cardiovascular: Hypertension Respiratory: None Endocrine/Autoimmune: None GI: None : None HEENT: None Psych: None Musculoskeletal: None Derm: None - Past Surgical History Past Surgical History: Yes General: Cholecystectomy - Present Medications Home Medications: Ambulatory Orders Medication Instructions Recorded Confirmed Levothyroxine [Synthroid] 75 mcg PO QDAC 06/14/18 08/28/20 Lisinopril/Hydrochlorothiazide 1 each PO DAILY 08/28/20 08/28/20 [Zestoretic 20-25 mg Tablet] Ondansetron Odt [Zofran] 4 mg TL Q6H PRN #10 tablet 08/28/20 - Allergies Allergies/Adverse Reactions: Allergies Allergy/AdvReac Type Severity Reaction Status Date / Time sulfamethoxazole AdvReac Rash Verified 06/14/18 10:24 [From Bactrim] trimethoprim [From Bactrim] AdvReac Rash Verified 06/14/18 10:24 - Social History Does the pt smoke?: No Smoking Status: Never smoker Does the pt drink ETOH?: Yes Does the pt have substance abuse?: No - Immunizations Immunizations are current?: Yes - POLST Patient has POLST: No PD ED PE EXPANDED - General General: Alert, Anxious - Neck Neck: Supple w/out meningeal sx. No: Adenopathy - Cardiac Cardiac: Regular Rate, Radial strong equal, Pedal strong equal, Cap refill < 2 sec. No: Murmur Present - Respiratory Respiratory: Clear to ausultation rodrigo. No: Distress, Labored - Abdomen Abdomen: Normal Bowel sounds. No: Tender to palpation - Derm Derm: Normal color, Warm and dry. No: Rash - Extremities Extremities: Normal. No: Deformity, Tenderness - Neuro Neuro: Alert and Oriented X 3, CNII-XII intact - GCS Eye Opening: Spontaneous Motor: Obeys Commands Verbal: Oriented Total: 15 Results - Vitals Vitals: Vital Signs - 24 hr 08/28/20 08/28/20 19:45 20:28 Temperature 37.2 C Heart Rate 96 80 Respiratory 16 21 Rate Blood Pressure 144/92 H 135/80 H O2 Saturation 100 100 Oxygen O2 Source Room air - EKG (time done) 1948 Rate: Rate (enter#) (88) Rhythm: NSR [place]: Normal Intervals: Normal [place]. No: Prolonged QT QRS: LVH, Low voltage Ischemia: Normal ST segments Compare to prior EKG: Unchanged from prior EKG Computer interpretation: Agree with computer - Labs Labs: Laboratory Tests 08/28/20 08/28/20 08/28/20 20:07 20:07 20:07 WBC 9.8 RBC 4.80 Hgb 14.1 Hct 42.4 MCV 88.3 MCH 29.4 MCHC 33.3 RDW 12.8 Plt Count 336 MPV 9.1 Neut # (Auto) 6.1 Lymph # (Auto) 2.8 [place] # (Auto) 0.7 Eos # (Auto) 0.1 Baso # (Auto) 0.1 Absolute Nucleated RBC 0.00 Nucleated RBC % 0.0 Sodium 136 Potassium 3.2 L Chloride 95 L Carbon Dioxide 29 Anion Gap 12.0 BUN 18 Creatinine 0.8 Estimated GFR (MDRD) 75 L Glucose 118 H Calcium 9.3 Total Bilirubin 0.9 AST 20 ALT 27 Alkaline Phosphatase 39 L Troponin I High Sens 3.2 Total Protein 8.1 Albumin 4.2 Globulin 3.9 Albumin/Globulin Ratio 1.1 Lipase 33 TSH Free T4 08/28/20 20:07 WBC RBC Hgb Hct MCV MCH MCHC RDW Plt Count MPV Neut # (Auto) Lymph # (Auto) [place] # (Auto) Eos # (Auto) Baso # (Auto) Absolute Nucleated RBC Nucleated RBC % Sodium Potassium Chloride Carbon Dioxide Anion Gap BUN Creatinine Estimated GFR (MDRD) Glucose Calcium Total Bilirubin AST ALT Alkaline Phosphatase Troponin I High Sens Total Protein Albumin Globulin Albumin/Globulin Ratio Lipase TSH 1.90 Free T4 1.09 - Rads (name of study) CXR Radiology: Final report received (No acute cardiopulmonary process.) PD MEDICAL DECISION MAKING - ED course Complexity details: reviewed results, re-evaluated patient, considered d ifferential, d/w patient, d/w family ED course: This is a well-appearing 55-year-old female presents emergency department for evaluation of nausea feeling of palpitations slightly elevated heart rate and a flushed face. This has occurred each of the last 2 nights when sitting down to eat dinner. She has been predominantly nauseated for the last 2 days. She does endorse a significant amount of anxiety. She was seen in this ER in May for chest discomfort and was referred For outpatient stress test and echocardiogram. She is scheduled to see the engineering writer in about 4 weeks time. Though she denies chest pain or shortness of air her chest x-ray was completed and showed no acute abnormalities. Her EKG is nonischemic and completely unchanged from the June 04 visit. Screening labs show no significant anemia. She is noted to have some mild hypokalemia. Was advised the potassium rich foods but not repleted here in the emergency department. Thyroid was u nremarkable. High-sensitivity troponin is negative. By Wells criteria low risk for PE. D-dimer not performed. She is not hypoxic and denies pleuritic chest pain or shortness of air. The etiology of her nausea flushed face and racing heart is not clear at this time. I do wonder if there is a component related to the meals or even possibly of food allergy. She feels improved after some IV fluids and Zofran. I will discharge her with prescription for Zofran. Continue follow-up with primary care provider and cardiology. Emergent return precautions were discussed. Departure - Departure Disposition: 01 Home, Self Care Clinical Impression: Nausea, Palpitations Condition: Stable Record reviewed to determine appropriate education?: Yes Prescriptions: Ondansetron Odt [Zofran] 4 mg TL Q6H PRN #10 tablet PRN Reason: Nausea / Vomiting Comments: You are seen in the ER today for a flushed face palpitations and nausea. This is occurred due to the last 2 nights when you are sitting down to eat dinner. Today your screening labs did not show any worrisome abnormalities. Your potassium was noted to be mildly low. I encourage you to eat some potassium rich foods over the next few days. Your screening EKG is unchanged from the May 2020 visit. Chest x-ray is also unremarkable. I think it is important you continue follow-up with your primary care provider as well as a engineering writer for which you have been referred for stress test and echocardiogram. However you are very low risk for coronary artery disease and your testing today does not suggest that the concern is with your heart. As we discussed I do suspect that there is a small component of anxiety that may be contributing to the symptoms. I am prescribing a limited amount of Zofran to help with nausea. I encourage you to eat small frequent meals and snacks for the next few days. Please stay well-hydrated. If at any point you develop chest pain, shortness of air suddenly severe or different symptoms then please return immediately to the ER for 2nd evaluation.
[2020-08-28 20:25] LABS: ALBUMIN 4.2 g/dL (3.2-5.5); ALBUMIN/GLOBULIN RATIO 1.1 (1.0-2.2); BILIRUBIN,TOTAL 0.9 mg/dL (0.2-1.0); CALCIUM 9.3 mg/dL (8.5-10.3); CREATININE 0.8 mg/dL (0.4-1.0); POTASSIUM 3.2 mmol/L (3.5-5.0); TOTAL PROTEIN 8.1 g/dL (6.7-8.2)
--- NOTE | 2020-08-28 20:39 | XRAY Report ---
PROCEDURE: Chest 1 View X-Ray INDICATIONS: Chest pain TECHNIQUE: One view of the chest was acquired. COMPARISON: Chest x-ray, one view, 05/23/2020. FINDINGS: Surgical changes and devices: None. Lungs and pleura: No pleural effusions or pneumothorax. Lungs are clear. Mediastinum: Mediastinal contours appear normal. Heart size is normal. Bones and chest wall: No suspicious bony lesions. Overlying soft tissues appear unremarkable. IMPRESSION: No acute cardiopulmonary disease. Reviewed by: Bebeto Whittaker MD on 08/28/2020 8:38 PM PDT Approved by: Bebeto Whittaker MD on 08/28/2020 8:38 PM PDT Station ID: [id number]
[2020-08-28 20:46] LABS: THYROID STIMULATING HORMONE 1.9 uIU/mL (0.34-5.60)
[2020-08-28 20:48] LABS: FREE T4 (FREE THYROXINE) 1.09 ng/dL (0.58-1.64)
[2020-08-28 22:13] VITALS: BP 127/68
== END 2020-08-28 22:13 | disposition home or self-care (01) ==
LOC: ED 19:44
DX: R11.0 Nausea (principal); R00.2 Palpitations; R23.2 Flushing; E87.6 Hypokalemia; I10 Essential (primary) hypertension; F41.9 Anxiety disorder, unspecified
CPT/HCPCS: 36415; 80053; 83690; 84439; 84443; 84484; 85025; 93005; 96374; 99284

== ENCOUNTER 2020-09-21 17:26 | Emergency (ER) | payer OTHER ==
[2020-09-21 17:52] LABS: BASOPHILS # (AUTO) 0.1 10^3/uL (0.0-0.1); BASOPHILS % (AUTO) 0.9 %; EOSINOPHILS # (AUTO) 0.1 10^3/uL (0.0-0.7); EOSINOPHILS % (AUTO) 1.2 %; HCT - HEMATOCRIT 44.9 % (37.0-47.0); HGB - HEMOGLOBIN 14.7 g/dL (12.0-16.0); LYMPHOCYTES # (AUTO) 3.1 10^3/uL (1.5-3.5); LYMPHOCYTES % (AUTO) 35.7 %; MEAN CORPUSCULAR HEMOGLOBIN 28.8 pg (27.0-31.0); MEAN CORPUSCULAR HGB CONC 32.7 g/dL (32.0-36.0); MEAN PLATELET VOLUME 9.4 fL (7.9-10.8); MONOCYTES # (AUTO) 0.6 10^3/uL (0.0-1.0); MONOCYTES % (AUTO) 6.5 %; NEUTROPHILS # (AUTO) 4.8 10^3/uL (1.5-6.6); NEUTROPHILS % (AUTO) 55.6 %; PLT - PLATELET COUNT 386 10^3/uL (130-450); RED CELL DISTRIBUTION WIDTH 12.9 % (12.0-15.0); WHITE BLOOD COUNT 8.6 x10^3/uL (4.8-10.8)
--- NOTE | 2020-09-21 17:53 | XRAY Report ---
PROCEDURE: Chest 1 View X-Ray INDICATIONS: Chest Pain TECHNIQUE: One view of the chest was acquired. COMPARISON: 08/28/2020, 05/23/2020 FINDINGS: Surgical changes and devices: None. Lungs and pleura: No pleural effusions or pneumothorax. Lungs are clear. Mediastinum: Mediastinal contours appear normal. Heart size is normal. Bones and chest wall: No suspicious bony lesions. Mild dextroconvex scoliotic curvature is seen. O verlying soft tissues appear unremarkable. IMPRESSION: Portable chest within normal limits for age. Reviewed by: Randal Buchanan MD on 09/21/2020 4:52 PM AKDT Approved by: Randal Buchanan MD on 09/21/2020 4:52 PM AKDT Station ID: [id number]
--- NOTE | 2020-09-21 18:03 | ED Physician Documentation ---
History of Present Illness - Stated complaint Stated Complaint: CHEST PX/LT SHOULDER PX - Chief complaint Chief Complaint: Cardiac - History obtained from History obtained from: Patient - History of Present Illness Timing: Today Pain level max: 3 Pain level now: 2 - Additonal information Additional information: Patient is a 55-year-old female states for the past 3 days she has had left upper chest and left shoulder pain. Nothing really makes it better or worse. She states occasionally she feels her heart racing. No cardiac history in the past. The pain comes and goes, unclear how long it lasts for. Does not seem to be related to exertion, movement, breathing. Does not recall any trauma, injuries, heavy lifting. No recent travel. No leg swelling. No recent surgery Review of Systems Ten Systems: 10 systems reviewed and negative Constitutional: denies: Fever, Chills Ears: denies: Ear pain Nose: denies: Rhinorrhea / runny nose, Congestion Throat: denies: Sore throat Cardiac: reports: Chest pain / pressure, Palpitations Respiratory: denies: Cough GI: denies: Nausea, Vomiting, Diarrhea Skin: denies: Rash Musculoskeletal: denies: Neck pain, Back pain Neurologic: denies: Headache PD PAST MEDICAL HISTORY - Past Medical History Cardiovascular: Hypertension Respiratory: None Endocrine/Autoimmune: None GI: None : None HEENT: None Psych: None Musculoskeletal: None Derm: None - Past Surgical History Past Surgical History: Yes General: Cholecystectomy - Present Medications Home Medications: Ambulatory Orders Medication Instructions Recorded Confirmed Levothyroxine [Synthroid] 75 mcg PO QDAC 06/14/18 09/21/20 Lisinopril/Hydrochlorothiazide 1 each PO DAILY 08/28/20 09/21/20 [Zestoretic 20-25 mg Tablet] Ondansetron Odt [Zofran] 4 mg TL Q6H PRN #10 tablet 08/28/20 09/21/20 - Allergies Allergies/Adverse Reactions: Allergies Allergy/AdvReac Type Severity Reaction Status Date / Time sulfamethoxazole AdvReac Rash Verified 06/14/18 10:24 [From Bactrim] trimethoprim [From Bactrim] AdvReac Rash Verified 06/14/18 10:24 - Social History Does the pt smoke?: No Smoking Status: Never smoker Does the pt drink ETOH?: No Does the pt have substance abuse?: No - Immunizations Immunizations are current?: Yes - POLST Patient has POLST: No PD ED PE NORMAL - Vitals Vital signs reviewed: Yes - General General: Alert and oriented X 3, No acute distress - HEENT HEENT: Moist mucous membranes - Neck Neck: Supple, no meningeal sign - Cardiac Cardiac: RRR - Respiratory Respiratory: No respiratory distress, Clear bilaterally - Abdomen Abdomen: Soft, Non tender, Non distended - Derm Derm: Warm and dry - Extremities Extremities: No edema, No calf tenderness / cord - Neuro Neuro: Alert and oriented X 3 - Psych Psych: Normal mood, Normal affect - Free text exam Free text exam: No tenderness on the chest wall. Mild pain with external rotation of the left shoulder. Results - Vitals Vitals: Vital Signs - 24 hr 09/21/20 09/21/20 09/21/20 17:28 17:52 18:32 Temperature 36.7 C Heart Rate 76 83 83 Respiratory 18 16 22 Rate Blood Pressure 142/90 H 145/96 H 137/77 H O2 Saturation 100 100 100 Oxygen O2 Source Room air - EKG (time done) 1736 Rate: Rate (enter#) (67) Rhythm: NSR [place]: Normal Intervals: Normal [place] QRS: Normal, LVH Ischemia: Normal ST segments Other comments: Other comments (early R wave transition) - Labs Labs: Laboratory Tests 09/21/20 09/21/20 09/21/20 17:47 17:47 17:47 WBC 8.6 RBC 5.10 Hgb 14.7 Hct 44.9 MCV 88.0 MCH 28.8 MCHC 32.7 RDW 12.9 Plt Count 386 MPV 9.4 Neut # (Auto) 4.8 Lymph # (Auto) 3.1 [place] # (Auto) 0.6 Eos # (Auto) 0.1 Baso # (Auto) 0.1 Absolute Nucleated RBC 0.00 Nucleated RBC % 0.0 Sodium 138 Potassium 3.5 Chloride 98 L Carbon Dioxide 29 Anion Gap 11.0 BUN 16 Creatinine 0.7 Estimated GFR (MDRD) 87 L Glucose 88 Calcium 10.0 Total Bilirubin 1.2 H AST 22 ALT 32 Alkaline Phosphatase 44 Troponin I High Sens 3.3 Total Protein 8.4 H Albumin 4.7 Globulin 3.7 Albumin/Globulin Ratio 1.3 Lipase 30 - Rads (name of study) cxr Radiology: Final report received, EMP read contemporaneously, See rad report (no acute disease) PD MEDICAL DECISION MAKING - ED course Complexity details: reviewed results, re-evaluated patient, considered differential (No ST elevation DE, no aortic dissection, no PE, no tension pneumothorax, no aortic aneurysm), d/w patient ED course: Patient with chest pain of unclear etiology. Likely musculoskeletal. No evidence of pulmonary embolism, acute coronary syndrome. Negative troponin here. No acute findings on EKG, chest x-ray or other laboratory testing. Patient counseled regarding signs and symptoms for which I believe and urgent re-evaluation would be necessary. Patient with good understanding of and agreement to plan and is comfortable going home at this time This document was made in part using voice recognition software. While efforts are made to proofread this document, sound alike and grammatical errors may o ccur. Departure - Departure Disposition: 01 Home, Self Care Clinical Impression: Chest pain Qualifiers: Chest pain type: unspecified Qualified Code(s): R07.9 - Chest pain, unspecified Condition: Good Instructions: ED Chest Pain Atypical Unkn Cause Follow-Up: Esther Denney PA-C [Primary Care Provider] - Within 1 week Comments: Follow-up with your doctor for further care. Return if you worsen. Your testing is normal today. Follow-up with the theater manager on Tuesday as scheduled, if your heart rate is showing variability, the theater manager may order a cardiac monitor technician for you to wear to make sure you are staying in a normal rhythm. Discharge Date/Time: 09/21/20 18:54
[2020-09-21 18:07] LABS: ALBUMIN 4.7 g/dL (3.2-5.5); ALBUMIN/GLOBULIN RATIO 1.3 (1.0-2.2); BILIRUBIN,TOTAL 1.2 mg/dL (0.2-1.0); CREATININE 0.7 mg/dL (0.4-1.0); POTASSIUM 3.5 mmol/L (3.5-5.0); TOTAL PROTEIN 8.4 g/dL (6.7-8.2)
[2020-09-21 18:32] VITALS: BP 137/77
== END 2020-09-21 18:54 | disposition home or self-care (01) ==
LOC: ED 17:26
DX: R07.9 Chest pain, unspecified (principal)
CPT/HCPCS: 36415; 80053; 83690; 84484; 85025; 93005; 99284

== ENCOUNTER 2020-11-11 08:02 | Outpatient (CLI) | payer OTHER ==
--- NOTE | 2020-11-11 08:41 | CARDIAC PROCEDURE NOTE ---
Stress Test Report Service Date: 11/11/20 Service Time: 08:00 Ordering Provider: Robinson Cerrato MD Indication for Test: Screen for coronary artery disease, in setting of intermittent lightheadedness and perceived tachycardias. Significant Medical History: -Darcy has been treated for hypertension for the past few years, with a change this past spring from lisinopril/HCTZ to lisinopril (only) due to hypokalemia and intermittent episodes of lightheadedness. She reports that her potassium increased while BP remain controlled, per home monitoring with her OMRON arm BP cuff. However she continue to experience intermittent lightheadedness episodes, which she believes causes her concern and possibly contributes to episodes of tachycardia. She does not "work out" on a regular basis, but she is able to take local hikes and feels that her exertional tolerance, though perhaps not optimized, is nonetheless stable, and she denies exertional chest discomfort as well as exertional exacerbation of the symptoms described above. -Over the past 6 months she has been seen in the Emergency Dept on 3 occasions for these symptoms, with some left upper chest and shoulder discomfort present at the last visit on 09/21/20. EKG was non-ischemic and troponin was negative at that visit, but she was referred to Dr Cerrato ([facility]) who initiated workup that has already included carotid duplex and outpatient 14- day rhythm monitoring. A treadmill stress echocardiogram was requested, but imaging denied by her insurer, hence she presents for a Franco ETT today. She reports taking her usual lisinopril dose last evening. Cardiac Risk Factors: In addition to her history of HTN, she reports early of her maternal grandfather from "heart attack", likely in his 40's, though she is not aware of other close family members with ASCVD events. She has never been a cigarettes smoker and has not been diagnosed with hyperlipidemia or diabetes. Type of Stress Test: Exercise Treadmill Test (ETT) Procedure: -Exercise Treadmill Test- After signing informed consent, the patient performed treadmill exercise using a Franco protocol. The patient exercised for 6 minutes 21 seconds and achieved a peak heart rate of 167 (100 percent predicted maximum heart rate for age), and an estimated workload of 7.6 METS. The test was terminated due to fatigue/shortness of breath after she achieved her target heart rate. Resting heart rate: 79 Peak heart rate: 167 Normal response to exercise. Resting BP: 142/92 Peak BP: 180/64 Hypertensive resting BP with physiologic response to exercise. Rhythm during exercise: Sinus rhythm throughout. Symptoms: She denied exertional chest discomfort, lightheadedness and palpitations. EKG at rest showed normal sinus rhythm, with low precordial QRS voltages and abnormal precordial R-wave progression in leads V2-V4 (with diminution of V3 R wave); otherwise QRS/ST/T pattern was normal throughout. EKG at peak stress showed J-point depression with upsloping ST segments, NOT meeting criteria for ischemia. In Recovery HR decline at one minute was abnormal (19 bpm) with gradual return toward normal HR and BP levels. No imaging was ordered with this stress test. IIsac MD, was present thoughout this treadmill stress test and supervised it in all aspects. Summary: 1) Exercise tolerance slightly below average for age and gender as evidenced by HEATHER of 13.5% (active scale). 2) Abnormal resting EKG. 3) Adequate level of exercise was achieved on this treadmill stress test. 4) Hypertensive at rest with normal BP response to exercise. 5) No ischemic changes by EKG criteria were seen at peak stress. CONCLUSIONS: 1) Low risk Franco treadmill stress test results, showing no symptom or EKG evidence of inducible ischemia. 2) BP was modestly elevated at baseline, with normal response to exercise. 3) Patient was encouraged to increase her activity level, in hopes of improving conditioning and losing weight; she will continue to self-monitor blood pressures and follow up with Dr Cerrato to review results of her entire workup.
== END 2020-11-11 08:03 | disposition home or self-care (01) ==
LOC: DI 08:02
PROVIDERS: ATTEND Internal Medicine Cardiovascular Disease
DX: R07.9 Chest pain, unspecified (principal); R94.31 Abnormal electrocardiogram [ECG] [EKG]
CPT/HCPCS: 93017

== ENCOUNTER 2020-11-14 08:39 | Outpatient (CLI) | payer OTHER ==
--- NOTE | 2020-11-17 10:20 | Mammography Report ---
BILATERAL DIGITAL SCREENING MAMMOGRAM 3D/2D: 11/14/2020 CLINICAL: Routine screening. Comparison is made to exams dated: 11/06/2019 ultrasound biopsy, 11/06/2019 mammogram, 10/30/2019 ultra sound, 10/30/2019 mammogram, 10/08/2019 mammogram, and 07/07/2017 mammogram - [facility]. There are scattered fibroglandular elements in both breasts. There is a biopsy clip in the left breast. No significant masses, calcifications, or other findings are seen in either breast. There has been no significant interval change. IMPRESSION: NEGATIVE There is no mammographic evidence of malignancy. A 1 year screening mammogram is recommended. This exam was interpreted at Station ID: [id number]. NOTE: For mammograms, a report in lay terms will be sent to the patient. Approximately 15% of breast malignancies will not be visualized mammographically. In the management of a palpable breast mass, a negative mammogram must not discourage biopsy of a clinically suspicious lesion. Electronically Signed By: Zion [email or web address]/[email or web address]:11/14/2020 11:04:37 ACR BI-RADS Category 1: Negative 3341F PARENCHYMAL PATTERN: (A) - The breast(s) demonstrate(s) scattered fibroglandular densities. BI-RADS CATEGORY: (1) - 1 RECOMMENDATION: (ANNUAL) - Recommend routine annual screening mammography. [id number] 1 year screening LATERALITY: (B)
== END 2020-11-14 08:40 | disposition home or self-care (01) ==
LOC: DI 08:39
DX: Z12.31 Encounter for screening mammogram for malignant neoplasm of breast (principal)

== ENCOUNTER 2021-04-26 20:18 | Emergency (ER) | payer OTHER ==
[2021-04-26] MEDS ORDERED: ONDANSETRON 4 MG/2 ML VIAL IVP STA (21:36)
[2021-04-26 21:58] LABS: BASOPHILS # (AUTO) 0.1 10^3/uL (0.0-0.1); BASOPHILS % (AUTO) 0.6 %; EOSINOPHILS # (AUTO) 0.1 10^3/uL (0.0-0.7); EOSINOPHILS % (AUTO) 1.1 %; HCT - HEMATOCRIT 42.8 % (37.0-47.0); HGB - HEMOGLOBIN 14.3 g/dL (12.0-16.0); LYMPHOCYTES # (AUTO) 2.4 10^3/uL (1.5-3.5); LYMPHOCYTES % (AUTO) 23.5 %; MEAN CORPUSCULAR HEMOGLOBIN 29.3 pg (27.0-31.0); MEAN CORPUSCULAR HGB CONC 33.4 g/dL (32.0-36.0); MEAN CORPUSCULAR VOLUME 87.7 fL (81.0-99.0); MEAN PLATELET VOLUME 9.7 fL (7.9-10.8); MONOCYTES # (AUTO) 0.6 10^3/uL (0.0-1.0); MONOCYTES % (AUTO) 6.3 %; NEUTROPHILS # (AUTO) 6.9 10^3/uL (1.5-6.6); NEUTROPHILS % (AUTO) 68.3 %; PLT - PLATELET COUNT 354 10^3/uL (130-450); RED BLOOD COUNT 4.88 10^6/uL (4.20-5.40); RED CELL DISTRIBUTION WIDTH 12.8 % (12.0-15.0); WHITE BLOOD COUNT 10.1 x10^3/uL (4.8-10.8)
[2021-04-26 22:13] LABS: ALBUMIN 4.2 g/dL (3.2-5.5); ALBUMIN/GLOBULIN RATIO 1.1 (1.0-2.2); BILIRUBIN,TOTAL 0.7 mg/dL (0.2-1.0); CALCIUM 9.5 mg/dL (8.5-10.3); CREATININE 0.7 mg/dL (0.4-1.0); MAGNESIUM 2.2 mg/dL (1.7-2.8); POTASSIUM 3.9 mmol/L (3.5-5.0); TOTAL PROTEIN 7.9 g/dL (6.7-8.2)
--- NOTE | 2021-04-26 22:32 | XRAY Report ---
PROCEDURE: Chest 1 View X-Ray INDICATIONS: dizzy TECHNIQUE: One view of the chest was acquired. COMPARISON: 09/21/2020 FINDINGS: Surgical changes and devices: None. Lungs and pleura: No pleural effusions or pneumothorax. Lungs are clear. Mediastinum: Mediastinal contours appear normal. Heart size is normal. Bones and chest wall: No suspicious bony lesions. Overlying soft tissues appear unremarkable. IMPRESSION: No acute cardiopulmonary disease process. Reviewed by: Michelle Shipley MD, PhD on 04/26/2021 10:31 PM PDT Approved by: Michelle Shipley MD, PhD on 04/26/2021 10:31 PM PDT Station ID: [id number]
[2021-04-26] MEDS ORDERED: SODIUM CHLORIDE 0.9% 500 ML IV STA (23:01)
--- NOTE | 2021-04-27 00:30 | ED Physician Documentation ---
PD HPI CHEST PAIN - Stated complaint Stated Complaint: NAUSEA,HIGH BP,FAST HR - Chief complaint Chief Complaint: Cardiac - History obtained from History obtained from: Patient - Additional information Additional information: At 7 PM, patient started having episode of nausea And feeling unwell. According to her Fitbit, her heart rate was in the 120s. She took her blood pressure and the systolic reading was 160s.She last ate this afternoon which was [employer] which she does not normally eat. She denies fever, headache, chest pain, difficulty breathing, abdominal pain, vomiting, diarrhea, leg swelling. No history of PE or DVT. No recent travel or immobilization.She had a stress test 6 months ago which was negative. Review of Systems Constitutional: denies: Fever Nose: denies: Rhinorrhea / runny nose, Congestion Cardiac: denies: Chest pain / pressure Respiratory: denies: Dyspnea, Cough GI: reports: Nausea. denies: Abdominal Pain, Vomiting, Diarrhea : denies: Dysuria Skin: denies: Rash Musculoskeletal: denies: Extremity swelling Neurologic: denies: Syncope PD PAST MEDICAL HISTORY - Past Medical History Past Medical History: Yes Cardiovascular: Hypertension Respiratory: None Endocrine/Autoimmune: HyPOthyroidism GI: None : None HEENT: None Psych: Depression Musculoskeletal: None Derm: None - Past Surgical History Past Surgical History: Yes General: Cholecystectomy - Present Medications Home Medications: Ambulatory Orders Medication Instructions Recorded Confirmed Levothyroxine [Synthroid] 75 mcg PO QDAC 06/14/18 04/26/21 Lisinopril/Hydrochlorothiazide 1 each PO DAILY 08/28/20 04/26/21 [Zestoretic 20-25 mg Tablet] Ondansetron Odt [Zofran] 4 mg TL Q6H PRN #10 tablet 08/28/20 09/21/20 DULoxetine [Cymbalta] 20 mg PO DAILY 04/26/21 04/26/21 - Allergies Allergies/Adverse Reactions: Allergies Allergy/AdvReac Type Severity Reaction Status Date / Time sulfamethoxazole AdvReac Rash Verified 04/26/21 20:22 [From Bactrim] trimethoprim [From Bactrim] AdvReac Rash Verified 04/26/21 20:22 - Social History Does the pt smoke?: No Smoking Status: Never smoker Does the pt drink ETOH?: No Does the pt have substance abuse?: No - Immunizations Immunizations are current?: Yes - POLST Patient has POLST: No PD ED PE NORMAL - General General: Alert and oriented X 3, No acute distress, Well developed/nourished - HEENT HEENT: Atraumatic, Moist mucous membranes, Pharynx benign - Neck Neck: Supple, no meningeal sign - Cardiac Cardiac: RRR, No murmur, No gallop, Strong equal pulses - Respiratory Respiratory: No respiratory distress, Clear bilaterally - Abdomen Abdomen: Normal bowel sounds, Soft, Non tender, Non distended - Derm Derm: Normal color, Warm and dry - Extremities Extremities: No deformity, No edema - Neuro Neuro: Alert and oriented X 3, 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 2-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, No motor deficit, Normal speech - Psych Psych: Normal mood, Normal affect Results - Vitals Vitals: Vital Signs - 24 hr 04/26/21 04/26/21 04/26/21 20:22 21:14 23:00 Temperature 36.5 C Heart Rate 109 H 90 83 Respiratory 16 22 20 Rate Blood Pressure 149/98 H 147/105 H 134/92 H O2 Saturation 100 99 98 04/27/21 04/27/21 00:04 00:35 Temperature 36.5 C Heart Rate 79 72 Respiratory 15 15 Rate Blood Pressure 135/87 H 138/68 H O2 Saturation 97 98 Oxygen O2 Source Room air - EKG (time done) 2022 Rate: Rate (enter#) (98) Rhythm: NSR Intervals: Other (QTC 423) Ischemia: No: ST elevation c/w ischemia, ST depression - Labs Labs: Laboratory Tests 04/26/21 04/26/21 04/26/21 21:46 21:46 21:46 WBC 10.1 RBC 4.88 Hgb 14.3 Hct 42.8 MCV 87.7 MCH 29.3 MCHC 33.4 RDW 12.8 Plt Count 354 MPV 9.7 Neut # (Auto) 6.9 H Lymph # (Auto) 2.4 [place] # (Auto) 0.6 Eos # (Auto) 0.1 Baso # (Auto) 0.1 Absolute Nucleated RBC 0.00 Nucleated RBC % 0.0 Sodium 136 Potassium 3.9 Chloride 101 Carbon Dioxide 26 Anion Gap 9.0 BUN 17 Creatinine 0.7 Estimated GFR (MDRD) 87 L Glucose 128 H Calcium 9.5 Magnesium 2.2 Total Bilirubin 0.7 AST 19 ALT 25 Alkaline Phosphatase 43 Troponin I High Sens 3.3 Total Protein 7.9 Albumin 4.2 Globulin 3.7 Albumin/Globulin Ratio 1.1 Lipase 43 04/26/21 23:29 WBC RBC Hgb Hct MCV MCH MCHC RDW Plt Count MPV Neut # (Auto) Lymph # (Auto) [place] # (Auto) Eos # (Auto) Baso # (Auto) Absolute Nucleated RBC Nucleated RBC % Sodium Potassium Chloride Carbon Dioxide Anion Gap BUN Creatinine Estimated GFR (MDRD) Glucose Calcium Magnesium Total Bilirubin AST ALT Alkaline Phosphatase Troponin I High Sens 3.6 Total Protein Albumin Globulin Albumin/Globulin Ratio Lipase PD MEDICAL DECISION MAKING - ED course ED course: Patient presenting for evaluation of nausea in the setting of elevated blood pressure. Neuro exam is normal do not suspect a stroke or dissection. Patient has no complaints of chest pain but given her age and risk factors, cardiac work-up was initiated. EKG demonstrates a sinus rhythm. Patient has no risk factors for PE. No pain to suggest a dissection. Labs reviewed Without significant abnormality. Abdominal exam remainsSoft and without tenderness and I do not think she needs abdominal imaging at this time.Patient felt better with IV fluids and Zofran. She was initially slightly tachycardic but this quickly improved.Patient was advised on need for close follow-up with her primary care doctor to recheck her blood pressure and strict return precautions for any new or worsening symptoms. Departure - Departure Disposition: 01 Home, Self Care Clinical Impression: Nausea Hypertension Qualifiers: Hypertension type: primary hypertension Qualified Code(s): I10 - Essential (primary) hypertension Condition: Stable Instructions: Tachycardia Comments: Please continue taking your medications as prescribed. Please follow-up with your primary care doctor. Return to the emergency department if you develop chest pain, difficulty breathing, return of nausea or abdominal pain or with any concerns. Discharge Date/Time: 04/27/21 00:46
[2021-04-27 00:36] VITALS: BP 138/68
== END 2021-04-27 00:46 | disposition home or self-care (01) ==
LOC: ED 20:18
DX: I10 Essential (primary) hypertension (principal); R11.0 Nausea
CPT/HCPCS: 36415; 80053; 83690; 83735; 84484; 85025; 93005; 96374; 99282

== ENCOUNTER 2021-05-14 09:08 | Outpatient (CLI) | payer OTHER ==
[2021-05-14 11:57] LABS: BASOPHILS # (AUTO) 0.1 10^3/uL (0.0-0.1); BASOPHILS % (AUTO) 0.7 %; EOSINOPHILS # (AUTO) 0.1 10^3/uL (0.0-0.7); EOSINOPHILS % (AUTO) 1.7 %; HCT - HEMATOCRIT 44.1 % (37.0-47.0); HGB - HEMOGLOBIN 14.3 g/dL (12.0-16.0); LYMPHOCYTES # (AUTO) 2.8 10^3/uL (1.5-3.5); MEAN CORPUSCULAR HEMOGLOBIN 28.6 pg (27.0-31.0); MEAN CORPUSCULAR HGB CONC 32.4 g/dL (32.0-36.0); MEAN CORPUSCULAR VOLUME 88.2 fL (81.0-99.0); MEAN PLATELET VOLUME 9.8 fL (7.9-10.8); MONOCYTES # (AUTO) 0.5 10^3/uL (0.0-1.0); MONOCYTES % (AUTO) 6.9 %; NEUTROPHILS % (AUTO) 53.3 %; PLT - PLATELET COUNT 378 10^3/uL (130-450); RED CELL DISTRIBUTION WIDTH 12.7 % (12.0-15.0); WHITE BLOOD COUNT 7.5 x10^3/uL (4.8-10.8)
[2021-05-14 12:14] LABS: ALBUMIN 4.1 g/dL (3.2-5.5); ALKALINE PHOSPHATASE 45 IU/L (42-121); ALT ALANINE AMINOTRANSFERASE 27 IU/L (10-60); AST ASPARTATE AMINOTRANSFERASE 19 IU/L (10-42); BILIRUBIN,TOTAL 0.6 mg/dL (0.2-1.0); BUN - BLOOD UREA NITROGEN 15 mg/dL (6-20); CALCIUM 9.8 mg/dL (8.5-10.3); CARBON DIOXIDE - CO2 28 mmol/L (21-32); CHLORIDE 100 mmol/L (101-111); CHOL/HDL RATIO 5.1 (<4.4); CHOLESTEROL 215 mg/dL; CREATININE 0.6 mg/dL (0.4-1.0); GFR - MDRD 104 (>89); GLUCOSE 97 mg/dL (70-100); HDL CHOLESTEROL 42 mg/dL; LDL CHOLESTEROL,CALCULATED 142 mg/dL; LDL/HDL RATIO 3.4 (<4.4); POTASSIUM 4.4 mmol/L (3.5-5.0); SODIUM 138 mmol/L (135-145); TOTAL PROTEIN 8.2 g/dL (6.7-8.2); TRIGLYCERIDES 153 mg/dL; VLDL CHOLESTEROL 31 mg/dL
[2021-05-14 12:22] LABS: THYROID STIMULATING HORMONE 1.33 uIU/mL (0.34-5.60)
== END 2021-05-14 09:09 | disposition home or self-care (01) ==
LOC: LAB.N 09:08
PROVIDERS: ATTEND Physician Assistant Medical
DX: Z00.00 Encounter for general adult medical examination without abnormal findings (principal); E78.2 Mixed hyperlipidemia
CPT/HCPCS: 36415; 80053; 80061; 83721; 84443; 85025

== ENCOUNTER 2021-06-25 09:59 | Outpatient (CLI) | payer OTHER ==
--- NOTE | 2021-06-25 12:27 | XRAY Report ---
PROCEDURE: Knee 2 View LT INDICATIONS: PAIN IN LEFT KNEE TECHNIQUE: 2 views of the left knee(s) were acquired. COMPARISON: None. FINDINGS: Bones: No fractures or dislocations. Mild to moderate tricompartmental osteoarthritis is seen. No s uspicious bony lesions. Soft tissues: No joint effusion. No suspicious soft tissue calcifications. IMPRESSION: Mild to moderate tricompartment osteoarthritis. No fracture or dislocation. No significa nt joint effusion. Reviewed by: Leonid Jordan MD on 06/25/2021 12:25 PM PDT Approved by: Leonid Jordan MD on 06/25/2021 12:25 PM PDT Station ID: [id number]
== END 2021-06-25 23:59 | disposition home or self-care (01) ==
LOC: DI.N 09:59
PROVIDERS: ATTEND Nurse Practitioner
DX: M17.12 Unilateral primary osteoarthritis, left knee (principal)

== ENCOUNTER 2021-11-13 08:21 | Outpatient (CLI) | payer OTHER ==
--- NOTE | 2021-11-16 10:04 | Mammography Report ---
BILATERAL DIGITAL DIAGNOSTIC MAMMOGRAM 3D/2D: 11/13/2021 CLINICAL: Palpable left breast lump. Due for Bilat. Comparison is made to exams dated: 11/14/2020 mammogram, 11/06/2019 mammogram, 10/08/2019 mammogram, an d 07/07/2017 mammogram - [facility]. There are scattered areas of fibroglandular density in both breasts (category b / 25%-50% glandular t issue). No significant masses, calcifications, or other findings are seen in either breast. IMPRESSION: INCOMPLETE: NEEDS ADDITIONAL IMAGING EVALUATION No mammographic evidence of malignancy. A targeted ultrasound is recommended for the left breast palpable abnormality and will immediately fo llow. Based on the Tyrer Cuzick model (a risk assessment model) the patients lifetime risk is 10.1% and he r 10 year risk is 3.1%. According to the ACR, ACS, and NCCN guidelines, an annual breast MRI exam elias ng with mammogram is recommended if the patients lifetime risk is 20% or greater. This exam was interpreted at Station ID: [id number]. NOTE: For mammograms, a report in lay terms will be sent to the patient. Approximately 15% of breast malignancies will not be visualized mammographically. In the management of a palpable breast mass, a negative mammogram must not discourage biopsy of a clinically suspicious lesion. Electronically Signed By: Blake Morrison M.D. slc/:11/13/2021 09:01:50 ACR BI-RADS Category 0: Incomplete 3340F PARENCHYMAL PATTERN: (A) - The breast(s) demonstrate(s) scattered fibroglandular densities. BI-RADS CATEGORY: (0) - 0 Ultrasound [id number] Immediate follow-up LATERALITY: (B)
--- NOTE | 2021-11-16 10:04 | Ultrasound Report ---
LIMITED ULTRASOUND OF LEFT BREAST: 11/13/2021 CLINICAL: Palpable left breast lump. Comparison is made to exams dated: 11/13/2021 mammogram, 11/14/2020 mammogram, 11/06/2019 mammogram, an d 10/30/2019 mammogram - [facility]. Real-time ultrasound of the left breast 11 o'clock region was performed. Hinds scale images of the re al-time examination were reviewed. No significant abnormalities were seen sonographically in the left breast in the region of the palpab le abnormality. IMPRESSION: NEGATIVE There is no sonographic evidence of malignancy. Exam findings were conveyed to the patient. Patient is advised to monitor for significant change. Cli nical follow-up as needed. A 1 year screening mammogram is recommended. This exam was interpreted at Station ID: [id number]. Electronically Signed By: Blake Morrison M.D. slc/:11/13/2021 09:39:56 Ultrasound BI-RADS: 1 Negative BI-RADS CATEGORY: (1) - 1 RECOMMENDATION: (ANNUAL) - Recommend routine annual screening mammography. [id number] 1 year screening LATERALITY: (B)
== END 2021-11-13 08:22 | disposition home or self-care (01) ==
LOC: DI 08:21
PROVIDERS: ATTEND Physician Assistant Medical
DX: N63.22 Unspecified lump in the left breast, upper inner quadrant (principal)

== ENCOUNTER 2022-04-12 10:20 | Outpatient (CLI) | payer OTHER ==
--- NOTE | 2022-04-13 11:07 | Ultrasound Report ---
LIMITED ULTRASOUND OF LEFT BREAST: 04/12/2022 CLINICAL: Palpable left breast lump. Comparison is made to exams dated: 04/12/2022 mammogram, 11/13/2021 ultrasound, 11/13/2021 mammogram, 1 mammogram, and 11/06/2019 mammogram - [facility]. Color flow and real-time ultrasound of the left breast 12 o'clock region were performed. Hinds scale images of the real-time examination were reviewed. There is a benign 3.1 cm x 2.3 cm x 0.8 cm oval mass with a circumscribed margin in the left breast a t 12 o'clock middle depth 12 cm from the nipple. This oval mass is hyperechoic. This correlates as palpated. Color flow imaging demonstrates that there is no increase in vascularity. IMPRESSION: BENIGN There is no sonographic evidence of malignancy. The 3.1 cm x 2.3 cm x 0.8 cm oval mass in the left breast most likely is a lipoma and is benign. Return to annual mammogram screening schedule is recommended. Future imaging is recommended as follo ws: 11/14/2022 screening mammogram. This exam was interpreted at Station ID: [id number]. Electronically Signed By: Madhu robbins/orestes:04/12/2022 12:00:23 Ultrasound BI-RADS: 2 Benign BI-RADS CATEGORY: (2) - 2 Mammogram [id number] return to screening LATERALITY: (B)
--- NOTE | 2022-04-13 11:07 | Mammography Report ---
UNILATERAL LEFT DIGITAL DIAGNOSTIC MAMMOGRAM 3D/2D: 04/12/2022 CLINICAL: Palpable left breast lump. Comparison is made to exams dated: 11/13/2021 mammogram, 11/14/2020 mammogram, 11/06/2019 mammogram, mammogram, 10/08/2019 mammogram, and 07/07/2017 mammogram - [facility]. There are scattered areas of fibroglandular density in the left breast (category b / 25%-50% glandula r tissue). No significant masses, calcifications, or other findings are seen in the breast. IMPRESSION: INCOMPLETE: NEEDS ADDITIONAL IMAGING EVALUATION There is no abnormality seen in the left breast to correspond with the palpable abnormality, however, ultrasound is recommended. Based on the Tyrer Cuzick model (a risk assessment model) the patients lifetime risk is 10.1% and he r 10 year risk is 3.1%. According to the ACR, ACS, and NCCN guidelines, an annual breast MRI exam elias ng with mammogram is recommended if the patients lifetime risk is 20% or greater. This exam was interpreted at Station ID: [id number]. NOTE: For mammograms, a report in lay terms will be sent to the patient. Approximately 15% of breast malignancies will not be visualized mammographically. In the management of a palpable breast mass, a negative mammogram must not discourage biopsy of a clinically suspicious lesion. Electronically Signed By: Madhu Allen M.D. ar/:04/12/2022 11:57:55 ACR BI-RADS Category 0: Incomplete 3340F PARENCHYMAL PATTERN: (A) - The breast(s) demonstrate(s) scattered fibroglandular densities. BI-RADS CATEGORY: (0) - 0 Ultrasound [id number] Immediate follow-up LATERALITY: (L)
== END 2022-04-12 10:21 | disposition home or self-care (01) ==
LOC: DI 10:20
PROVIDERS: ATTEND Physician Assistant Medical
DX: N63.22 Unspecified lump in the left breast, upper inner quadrant (principal)

== ENCOUNTER 2023-02-19 09:13 | Outpatient (CLI) | payer OTHER ==
[2023-02-19 19:03] LABS: BASOPHILS % (AUTO) 0.5 %; EOSINOPHILS # (AUTO) 0.1 10^3/uL (0.0-0.7); EOSINOPHILS % (AUTO) 1.4 %; HCT - HEMATOCRIT 45.5 % (37.0-47.0); HGB - HEMOGLOBIN 14.3 g/dL (12.0-16.0); LYMPHOCYTES # (AUTO) 2.7 10^3/uL (1.5-3.5); LYMPHOCYTES % (AUTO) 34.7 %; MEAN CORPUSCULAR HEMOGLOBIN 28.3 pg (27.0-31.0); MEAN CORPUSCULAR HGB CONC 31.4 g/dL (32.0-36.0); MEAN CORPUSCULAR VOLUME 89.9 fL (81.0-99.0); MONOCYTES # (AUTO) 0.5 10^3/uL (0.0-1.0); MONOCYTES % (AUTO) 6.8 %; NEUTROPHILS # (AUTO) 4.3 10^3/uL (1.5-6.6); NEUTROPHILS % (AUTO) 56.5 %; PLT - PLATELET COUNT 366 10^3/uL (130-450); RED BLOOD COUNT 5.06 10^6/uL (4.20-5.40); RED CELL DISTRIBUTION WIDTH 13.9 % (12.0-15.0); WHITE BLOOD COUNT 7.7 x10^3/uL (4.8-10.8)
[2023-02-19 19:28] LABS: ALBUMIN 4.3 g/dL (3.2-5.5); ALBUMIN/GLOBULIN RATIO 1.3 (1.0-2.2); ALKALINE PHOSPHATASE 44 IU/L (42-121); ALT ALANINE AMINOTRANSFERASE 27 IU/L (10-60); AST ASPARTATE AMINOTRANSFERASE 17 IU/L (10-42); BUN - BLOOD UREA NITROGEN 13 mg/dL (6-20); CALCIUM 9.8 mg/dL (8.5-10.3); CARBON DIOXIDE - CO2 30 mmol/L (21-32); CHLORIDE 103 mmol/L (101-111); CHOL/HDL RATIO 4.6 (<4.4); CHOLESTEROL 194 mg/dL; CREATININE 0.6 mg/dL (0.6-1.3); GFR - MDRD 103 (>89); GLUCOSE 92 mg/dL (74-104); HDL CHOLESTEROL 42 mg/dL; LDL CHOLESTEROL,CALCULATED 128 mg/dL; POTASSIUM 4.7 mmol/L (3.5-4.5); SODIUM 139 mmol/L (135-145); TOTAL PROTEIN 7.6 g/dL (6.4-8.9); TRIGLYCERIDES 119 mg/dL (48-352); VLDL CHOLESTEROL 24 mg/dL
[2023-02-19 19:41] LABS: THYROID STIMULATING HORMONE 2.74 uIU/mL (0.34-5.60)
== END 2023-02-19 09:14 | disposition home or self-care (01) ==
LOC: LAB.N 09:13
PROVIDERS: ATTEND Physician Assistant Medical
DX: I10 Essential (primary) hypertension (principal); E78.2 Mixed hyperlipidemia; E03.9 Hypothyroidism, unspecified
CPT/HCPCS: 36415; 80053; 80061; 83721; 84443; 85025

== ENCOUNTER 2023-08-03 17:18 | Outpatient (CLI) | payer OTHER ==
--- NOTE | 2023-08-04 09:26 | XRAY Report ---
PROCEDURE: Cervical Spine 2-3V INDICATIONS: RADICULOPATHY, CERVICAL REGION TECHNIQUE: 3 view(s) of the cervical spine were acquired. COMPARISON: 09/30/2017 FINDINGS: Bones: No fractures or dislocations to the C7 level. Multilevel degenerative changes of the cervica l spine with facet and uncovertebral arthropathy, disc height loss, endplate degenerative changes and spurring. The lateral masses of C1 appear intact on the odontoid view. No suspicious bony lesions. Soft tissues: No prevertebral soft tissue swelling. IMPRESSION: Mild multilevel degenerative changes of the cervical spine with straightening of the normal cervical lordosis. Reviewed by: Junior Saul MD on 08/04/2023 9:25 AM PDT Approved by: Junior Saul MD on 08/04/2023 9:25 AM PDT Station ID: [id number]
--- NOTE | 2023-08-04 09:35 | XRAY Report ---
PROCEDURE: Lumbar Spine 2-3V INDICATIONS: RADICULOPATHY LUMBAR REGION TECHNIQUE: 2 views of the lumbar spine were acquired. COMPARISON: 09/21/2016. FINDINGS: Surgical change: None. Bones: 5 [id number] vertebrae are present. There is normal bony alignment. No vertebral body co mpression fractures. No suspicious bony lesions. There are multilevel degenerative changes of the gio mbar spine with facet arthropathy and disc height loss with degenerative endplate changes and margina l spurring. This is most pronounced at L5-S1. Diffusely decreased osseous mineralization. Soft tissues: Overlying bowel gas pattern is normal. No suspicious soft tissue calcifications. Ther e are quadrant surgical clips. IMPRESSION: Mild multilevel degenerative changes of the lumbar spine, moderate degenerative changes at L5-S1. Reviewed by: Junior Saul MD on 08/04/2023 9:34 AM PDT Approved by: Junior Saul MD on 08/04/2023 9:34 AM PDT Station ID: [id number]
== END 2023-08-03 17:19 | disposition home or self-care (01) ==
LOC: DI 17:18
PROVIDERS: ATTEND Physician Assistant Medical
DX: M47.812 Spondylosis without myelopathy or radiculopathy, cervical region (principal); M47.816 Spondylosis without myelopathy or radiculopathy, lumbar region; M47.817 Spondylosis without myelopathy or radiculopathy, lumbosacral region

== ENCOUNTER 2023-08-25 10:57 | Outpatient (CLI) | payer OTHER ==
--- NOTE | 2023-08-25 21:36 | Ultrasound Report ---
PROCEDURE: Ankle Brachial Index INDICATIONS: TOE DISCOLORATION TECHNIQUE: Ankle-brachial indices were obtained bilaterally and recorded. COMPARISONS: None. FINDINGS: Right ankle brachial index (JEANE): 1.17 Left ankle brachial index (JEANE): 1.3 Brachial and ankle blood pressures on the right and left measure 127/84, 151/99 and 129/92, 160/95 re spectively. Posterior tibial and dorsalis pedis arteries are patent bilaterally. Healing potential: Ankle pressures >55 mm Hg in non-diabetics and >80 mm Hg in diabetics are likely to achieve primary h ealing of ischemic foot ulcers. Toe pressures >30 mm Hg are likely to achieve primary healing of ischemic foot ulcers, toe or transme tatarsal amputations. IMPRESSION: Normal ABIs. Reviewed by: Demetria Cartwright MD on 08/25/2023 9:35 PM PDT Approved by: Demetria Cartwright MD on 08/25/2023 9:35 PM PDT Station ID: [id number]
== END 2023-08-25 10:58 | disposition home or self-care (01) ==
LOC: DI 10:57
PROVIDERS: ATTEND Family Medicine
DX: L81.9 Disorder of pigmentation, unspecified (principal)
CPT/HCPCS: 93922